=== PATIENT | female | born 1995 | race Caucasian/White ===

== ENCOUNTER 2018-06-13 20:31 | Emergency (ER) | payer BC, OTHER ==
[2018-06-13] MEDS ORDERED: ONDANSETRON 4 MG/2 ML VIAL ONE (21:24)
[2018-06-13] MEDS ORDERED: ONDANSETRON 4 MG/2 ML VIAL IVP ONE (21:33)
[2018-06-13] MEDS ORDERED: NS 1,000 ML IV ONE ×2 (21:34→21:43)
[2018-06-13 21:51] LABS: PLATELET COUNT 449 10^3/uL (150-400)
[2018-06-13] MEDS ORDERED: LORazepam 2 MG/ML INJ ONE (22:10)
[2018-06-13] MEDS ORDERED: LORazepam 2 MG/ML INJ IVP ONE (22:11)
[2018-06-13] MEDS ORDERED: HYDROmorphONE/DILAUDID 2 MG/ML INJ IVP ONE (23:17)
[2018-06-13] MEDS ORDERED: IOPAMIDOL (ISOVUE-300) 100 ML BTL ONE (23:37)
--- NOTE | 2018-06-14 00:17 | EDPHY ---
H & P Stated Complaint: lower abd pain off and on since this weekend with vomiting - Personal History LMP (Females 10-55): Over 28 Days Ago Current Tetanus/Diphtheria Vaccine: Yes Current Tetanus Diphtheria and Acellular Pertussis (TDAP): Yes - Medical/Surgical History Hx Asthma: No Hx Chronic Respiratory Disease: No Hx Diabetes: No Hx Cardiac Disease: No Hx Renal Disease: No Hx Cirrhosis: No Hx Alcoholism: No Hx HIV/AIDS: No Hx Splenectomy or Spleen Trauma: No Other PMH: denies - Social History Smoking Status: Current every day smoker Time Seen by Provider: 06/13/18 21:25 HPI/ROS: Chief complaint: Abdominal pain History of present illness: This is a 22-year-old female who presents to the emergency department for abdominal pain. She reports the onset of diffuse pain earlier this evening. She has had multiple episodes of vomiting described as nonbloody, nonbilious. She has subsequently developed some diarrhea without blood or mucus. She denies precipitating factors. She denies alleviating factors. She denies other associated signs or symptoms and no fevers or urinary symptoms. No recent foreign travel, no recent antibiotic use, no sick contacts are noted. Review of systems: A 10 point review of systems was obtained and other than described above was negative ([place]) - Physical Exam Exam: General Appearance: Alert, nontoxic. Eyes: Pupils equal and round no pallor or injection. ENT, Mouth: Mucous membranes moist. Respiratory: There are no retractions, lungs are clear to auscultation. Cardiovascular: Regular rate and rhythm. Gastrointestinal: Bowel sounds are normal. Abdomen is soft and nondistended. Mild tenderness in the lower quadrants, right greater than left. No guarding or other peritoneal signs noted. Neurological: Alert and oriented. Skin: Warm and dry, no rashes. Musculoskeletal: Neck is supple non tender. Extremities are symmetrical, full range of motion. Psychiatric: Patient is oriented X 3, there is no agitation. ([place]) Constitutional: Initial Vital Signs Temperature (C) 36.6 C 06/13/18 20:38 Heart Rate 82 06/13/18 20:38 Respiratory Rate 16 06/13/18 20:38 Blood Pressure 122/87 H 06/13/18 20:38 O2 Sat (%) 100 06/13/18 20:38 O2 Delivery Mode Room Air Allergies/Adverse Reactions: Penicillins Allergy (Verified 06/13/18 20:40) Home Medications: Medication Instructions Recorded Birthcontrol 06/13/18 Probiotic 06/13/18 Prozac 10 MG (*) 06/13/18 Medical Decision Making ED Course/Re-evaluation: 0135: CT scan abdomen pelvis with IV contrast faxed me by direct Radiology at time 12:25 a.m., this shows no acute intra-abdominal or pelvic abnormality I did go re-evaluate the patient at 1:35 a.m.. Patient this time resting comfortably no acute distress. Abdomen remained soft nontender. She is not vomiting. She p.o. Challenge well. Discussed return precautions with her return emergency room if worsening abdominal pain, fever, vomiting (Garfield Navarrete) Patient seen under the supervision of my secondary supervising physician Dr. Garfield Navarreet. Patient presents for abdominal pain, nausea vomiting and diarrhea. Blood studies show mild leukocytosis. She has been symptomatically treated with mild improvement in symptoms. She continues to have pain, including at McBurney's point. Decision is made to obtain a CT scan. Care of patient turned over to Dr. Garfield Navarrete pending results of the CT scan. ( [place]) Differential Diagnosis: Included but not limited to gastritis, gastroenteritis, biliary tract disease, pancreatitis, colitis, appendicitis, urinary tract infection, an associated complications ([place]) - Data Points Laboratory Results: Laboratory Results 06/13/18 21:30 06/13/18 21:30 Medications Given: Discontinued Medications Hydromorphone HCl (Dilaudid) 0.5 mg IVP EDNOW ONE Stop: 06/13/18 23:18 Last Admin: 06/14/18 01:02 Dose: Not Given Sodium Chloride (Ns) 1,000 mls @ 0 mls/hr IV EDNOW ONE; Wide Open PRN Reason: Protocol Stop: 06/13/18 21:35 Last Admin: 06/13/18 21:34 Dose: 1,000 mls Sodium Chloride (Ns) 1,000 mls @ 0 mls/hr IV EDNOW ONE; Wide Open PRN Reason: Protocol Stop: 06/13/18 21:44 Last Admin: 06/13/18 22:12 Dose: 1,000 mls Lorazepam (Ativan Injection) 1 mg IVP EDNOW ONE Stop: 06/13/18 22:12 Last Admin: 06/13/18 22:12 Dose: 1 mg Ondansetron HCl (Zofran) 4 mg IVP EDNOW ONE Stop: 06/13/18 21:34 Last Admin: 06/13/18 21:34 Dose: 4 mg Ondansetron HCl (Zofran Odt 4 Mg Prepack#2) 1 btl TAKEHOME EDNOW ONE Stop: 06/14/18 00:20 Last Admin: 06/14/18 00:59 Dose: 1 btl Departure - Departure Disposition: Home, Routine, Self-Care Clinical Impression: Abdominal pain Condition: Good Instructions: Acute Abdominal Pain (ED) Additional Instructions: Follow-up with your primary care doctor in 1-2 days for recheck If symptoms worsen or new symptoms develop return to the emergency room for recheck 1. [place] diet over the next 24 to 48 hours, no spicy, fatty or greasy food. 2. Return to the Emergency Room if you have worsening symptoms, this includes, vomiting, fever, abdominal pain or not doing well. 3. Advance your diet slowly. Referrals: EVE FINK [Other] - As per Instructions
[2018-06-14] MEDS ORDERED: ONDANSETRON 4MG PREPACK#2 BTL TAKEHOME ONE (00:19)
[2018-06-14 02:00] VITALS: BP 136/75
== END 2018-06-14 02:01 | disposition home or self-care (01) ==
DX: R10.9 Unspecified abdominal pain (principal); E86.9 Volume depletion, unspecified
CPT/HCPCS: 96374; J1170; J2060; J2405; Q9967